=== PATIENT | male | born 1995 | race Caucasian/White ===

== ENCOUNTER 2018-12-07 00:19 | Emergency (ER) | payer SELFPAY ==
[~2018-12-07] VITALS: Ht 170.2 cm; Wt 79.4 kg
[2018-12-07] MEDS ORDERED: MIDAZOLAM 5 MG/5 ML (VERSED) VIAL IJ ONE (00:22)
[2018-12-07] MEDS ORDERED: SUCCINYLCHOLINE INJ 100 MG/5 ML SYR INJ ONE (00:22)
[2018-12-07] MEDS ORDERED: ROCURONIUM 10 MG/ML 5 ML SYRINGE IV ONE (00:22)
[2018-12-07] MEDS ORDERED: ETOMIDATE IV SOLN 20 MG/10 ML VIAL IV ONE (00:22)
--- NOTE | 2018-12-07 00:30 | NUR ---
PT PRESENTS TO ED AFTER AN INTENTIONAL OVERDOSE. PT ADMITS TO TAKING 52 TABLETS OF BENADRYL, 275 MG OF TRAMADOL, AND 10 PILLS OF PROZAC OF UNKNOWN DOSAGE. PT IS LETHARGIC, PALE, AND DIAPHORETIC.
[2018-12-07] MEDS ORDERED: NS IV 1000 ML 1,000 ML IV STA ×2 (00:41→01:08)
[2018-12-07 00:51] LABS: HEMATOCRIT 44 % (40-54); HEMOGLOBIN 15.3 G/DL (13.3-17.7); MEAN CORPUSCULAR HEMOGLOBIN 29 PG (25-34); MEAN CORPUSCULAR HGB CONC 35 G/DL (32-36); MEAN CORPUSCULAR VOLUME 85 FL (80-99); MEAN PLATELET VOLUME 9.1 FL (7.4-10.4); NEUTROPHILS % (AUTO) 69 % (42-75); PLATELET COUNT 267 10^3/uL (130-400); RED CELL DISTRIBUTION WIDTH 12.5 % (10.0-14.5); WHITE BLOOD COUNT 9.7 10^3/uL (4.3-11.0)
[2018-12-07] MEDS ORDERED: ONDANSETRON 4 MG/2 ML (SDV) Z0FRAN IVP STA (00:51)
[2018-12-07 00:52] LABS: BASOPHILS % (AUTO) 0 % (0-10); EOSINOPHILS # (AUTO) 0.1 10^3/uL (0.0-0.3); EOSINOPHILS % (AUTO) 1 % (0-10); LYMPHOCYTES % (AUTO) 21 % (12-44); MONOCYTES # (AUTO) 0.8 X 10^3 (0.0-1.0); MONOCYTES % (AUTO) 8 % (0-12); NEUTROPHILS # (AUTO) 6.8 X 10^3 (1.8-7.8)
[2018-12-07 01:01] LABS: ACETAMINOPHEN < 10 UG/ML (10-30); ALANINE AMINOTRANSFERASE 19 U/L (0-55); ALBUMIN 4.8 GM/DL (3.2-4.5); ALKALINE PHOSPHATASE 55 U/L (40-136); BILIRUBIN,TOTAL 0.3 MG/DL (0.1-1.0); BUN/CREATININE RATIO 11; CALCIUM 9.6 MG/DL (8.5-10.1); CARBON DIOXIDE 24 MMOL/L (21-32); CHLORIDE 99 MMOL/L (98-107); GFR ESTIMATED > 60; GLUCOSE 108 MG/DL (70-105); POTASSIUM 3.6 MMOL/L (3.6-5.0); SALICYLATE < 5.0 MG/DL (5.0-20.0); SODIUM 139 MMOL/L (135-145); TOTAL PROTEIN 7.5 GM/DL (6.4-8.2)
[2018-12-07] MEDS ORDERED: SODIUM BICARB 8.4% 50 MEQ/50 ML (ABBOTT) SYR ONE (01:07)
[2018-12-07] MEDS ORDERED: SODIUM BICARB 8.4% 50 MEQ/50 ML VIAL IV STA (01:08)
[2018-12-07] MEDS ORDERED: LORazepam INJ 2 MG/ML (ATIVAN) VIAL IVP STA (01:12)
[2018-12-07 01:13] LABS: COLOR,URINE YELLOW
[2018-12-07 01:14] LABS: BILIRUBIN,URINE NEGATIVE (NEGATIVE); CLARITY,URINE CLEAR; GLUCOSE, URINE (UA) NEGATIVE (NEGATIVE); KETONES,URINE NEGATIVE (NEGATIVE); LEUKOCYTE ESTERASE ,URINE NEGATIVE (NEGATIVE); NITRITE,URINE NEGATIVE (NEGATIVE); PROTEIN,URINE NEGATIVE (NEGATIVE); UROBILINOGEN,URINE 0.2 MG/DL (NORMAL); WBC,URINE 0-2 /HPF
--- NOTE | 2018-12-07 01:17 | ED Psychosocial ---
General Chief Complaint: Overdose Stated Complaint: OVERDOSE Nursing Triage Note: PT STATES HE TOOK 52 BENADRYL, 275MG TRAMADOL, 10-12 PROZAC, AND A HALF A BOTTLE OF WINE. PT IS LETHARGIC, PALE, AND DIAPHORETIC ON ARRIVAL Source: patient History of Present Illness Date Seen by Provider: Dec 07, 2018 Time Seen by Provider: 00:23 Initial Comments 23-year-old male presenting from home after overdosing on 52 Benadryl, 275 mg of tramadol, unknown number of Prozac and a bottle of wine. He states that he was trying to kill himself because he was depressed about his father's recent . He then changed his mind and drove himself here to the emergency department. He lives by himself. He was diaphoretic on arrival to the emergency department. He was also very tachycardic. He now states that he does not want to and that is why he came to the hospital to get help. He denies any past medical problems other than depression and problems with his shoulder. He reports that he took the medicines around 11 or 11:30 PM. Allergies and Home Medications Allergies Coded Allergies: Sulfa (Sulfonamide Antibiotics) (Verified Allergy, Unknown, 12/07/18) Patient Home Medication List Home Medication List Reviewed: Yes Review of Systems Constitutional: No chills; diaphoresis; No dizziness, No fever EENTM: No blurred vision, No throat pain, No throat swelling Respiratory: No cough, No dyspnea on exertion, No short of breath Cardiovascular: No chest pain; palpitations Gastrointestinal: No abdominal pain; nausea; No vomiting Genitourinary: no symptoms reported Musculoskeletal: no symptoms reported Skin: no symptoms reported Psychiatric/Neurological: Depressed, Emotional Problems Past Dskhimt-Yjifgv-Fzvsus Hx Past Med/Social Hx: Reviewed Nursing Past Med/Soc Hx Patient Social History Alcohol Use: Occasionally Uses Alcohol Beverage of Choice: Wine Recreational Drug Use: No Smoking Status: Never a Smoker Recent Foreign Travel: No Contact w/Someone Who Travel: No Recent Infectious Disease Expo: No Physical Abuse: No Sexual Abuse: No Mistreated: No Fear: No Seasonal Allergies Seasonal Allergies: No Past Medical History Surgeries: No Respiratory: No Cardiac: No Neurological: No Genitourinary: No Gastrointestinal: No Musculoskeletal: No Endocrine: No HEENT: No Cancer: No Psychosocial: Yes Depression Integumentary: No Physical Exam Vital Signs - First Documented 12/07/18 00:30 Temp 100.0 Pulse 115 Resp 22 B/P (MAP) 155/97 (116) Pulse Ox 99 O2 Delivery Room Air Capillary Refill : Less Than 3 Seconds Height, Weight, BMI Height: 5'7.00" Weight: 175lbs. oz. 79.616601fs; BMI Method:Estimated General Appearance: WD/WN HEENT: PERRL/EOMI, other (dry mucous membranes) Neck: non-tender, full range of motion, supple, normal inspection Respiratory: chest non-tender, lungs clear, normal breath sounds, no respiratory distress, no accessory muscle use Cardiovascular: normal peripheral pulses, tachycardia Gastrointestinal: normal bowel sounds, soft, no pulsatile mass Extremities: normal range of motion, non-tender, normal inspection, no calf tenderness, normal capillary refill Neurologic/Psychiatric: oriented x 3, depressed affect, other (somnolent but awakens to voice and answering questions) Appearance/Memory: disheveled Behavior/Eye Contact: cooperative Thoughts/Hallucinations: normal thought pattern Skin: diaphoresis, pallor Lymphatic: no adenopathy Procedures/Interventions Reason for Intubation: Secure airway to prevent aspiration and maintain airway and ventilations Date of ETT Placement: Dec 07, 2018 Time of ETT Placement: 02:00 Intubation Method: orotracheal Tube Size: 7.5 Medications: Etomidate, Succinylcholine, Versed Positive End Tide CO2: Yes Breath Sounds after Intubation: bilateral-equal Intubation Complications: no complications Post Intubation Xray: Yes ET tube in place above the arthur and with bilateral lung expansion. Progress/Results/Core Measures Results/Orders Lab Results Laboratory Tests Test 12/07/18 00:30 12/07/18 00:55 Range/Units White Blood Count 9.7 4.3-11.0 10^3/uL Red Blood Count 5.20 4.35-5.85 10^6/uL Hemoglobin 15.3 13.3-17.7 G/DL Hematocrit 44 40-54 % Mean Corpuscular Volume 85 80-99 FL Mean Corpuscular Hemoglobin 29 25-34 PG Mean Corpuscular Hemoglobin Concent 35 32-36 G/DL Red Cell Distribution Width 12.5 10.0-14.5 % Platelet Count 267 130-400 10^3/uL Mean Platelet Volume 9.1 7.4-10.4 FL Neutrophils (%) (Auto) 69 42-75 % Lymphocytes (%) (Auto) 21 12-44 % Monocytes (%) (Auto) 8 0-12 % Eosinophils (%) (Auto) 1 0-10 % Basophils (%) (Auto) 0 0-10 % Neutrophils # (Auto) 6.8 1.8-7.8 X 10^3 Lymphocytes # (Auto) 2.0 1.0-4.0 X 10^3 Monocytes # (Auto) 0.8 0.0-1.0 X 10^3 Eosinophils # (Auto) 0.1 0.0-0.3 10^3/uL Basophils # (Auto) 0.0 0.0-0.1 10^3/uL Sodium Level 139 135-145 MMOL/L Potassium Level 3.6 3.6-5.0 MMOL/L Chloride Level 99 98-107 MMOL/L Carbon Dioxide Level 24 21-32 MMOL/L Anion Gap 16 H 5-14 MMOL/L Blood Urea Nitrogen 12 7-18 MG/DL Creatinine 1.10 0.60-1.30 MG/DL Estimat Glomerular Filtration Rate > 60 BUN/Creatinine Ratio 11 Glucose Level 108 H 70-105 MG/DL Calcium Level 9.6 8.5-10.1 MG/DL Corrected Calcium 8.5-10.1 MG/DL Total Bilirubin 0.3 0.1-1.0 MG/DL Aspartate Amino Transf (AST/SGOT) 16 5-34 U/L Alanine Aminotransferase (ALT/SGPT) 19 0-55 U/L Alkaline Phosphatase 55 40-136 U/L Total Protein 7.5 6.4-8.2 GM/DL Albumin 4.8 H 3.2-4.5 GM/DL Lipase 22 8-78 U/L Salicylates Level < 5.0 L 5.0-20.0 MG/DL Acetaminophen Level < 10 L 10-30 UG/ML Serum Alcohol 17 H <10 MG/DL Urine Color YELLOW Urine Clarity CLEAR Urine pH 7.0 5-9 Urine Specific [place] <1.005 1.016-1.022 Urine Protein NEGATIVE NEGATIVE Urine Glucose (UA) NEGATIVE NEGATIVE Urine Ketones NEGATIVE NEGATIVE Urine Nitrite NEGATIVE NEGATIVE Urine Bilirubin NEGATIVE NEGATIVE Urine Urobilinogen 0.2 NORMAL MG/DL Urine Leukocyte Esterase NEGATIVE NEGATIVE Urine RBC (Auto) TRACE H NEGATIVE Urine RBC 2-5 H /HPF Urine WBC 0-2 /HPF Urine Crystals NONE /LPF Urine Bacteria NONE /HPF Urine Casts NONE /LPF Urine Mucus NEGATIVE /LPF Urine Culture Indicated NO Urine Opiates Screen NEGATIVE NEGATIVE Urine Oxycodone Screen NEGATIVE NEGATIVE Urine Methadone Screen NEGATIVE NEGATIVE Urine Propoxyphene Screen NEGATIVE NEGATIVE Urine Barbiturates Screen NEGATIVE NEGATIVE Ur Tricyclic Antidepressants Screen NEGATIVE NEGATIVE Urine Phencyclidine Screen NEGATIVE NEGATIVE Urine Amphetamines Screen NEGATIVE NEGATIVE Urine Methamphetamines Screen NEGATIVE NEGATIVE Urine Benzodiazepines Screen NEGATIVE NEGATIVE Urine Cocaine Screen NEGATIVE NEGATIVE Urine Cannabinoids Screen POSITIVE H NEGATIVE My Orders Orders - ISABEL GORDON MD Ua Culture If Indicated (12/07/18 00:38) Cbc With Automated Diff (12/07/18 00:38) Comprehensive Metabolic Panel (12/07/18 00:38) Alcohol (12/07/18 00:38) Drug Screen Stat (Urine) (12/07/18 00:38) Acetaminophen (12/07/18 00:38) Salicylate (12/07/18 00:38) Ekg Tracing (12/07/18 00:38) Ed Iv/Invasive Line Start (12/07/18 00:38) Monitor-Rhythm Ecg Trace Only (12/07/18 00:38) Bh Status Checks/Observation Q15M (12/07/18 00:38) Ns Iv 1000 Ml (Sodium Chloride 0.9%) (12/07/18 00:41) Ondansetron Injection (Zofran Injectio (12/07/18 00:51) Sodium Bicarbonate 8.4% Vial (Sodium Bic (12/07/18 01:08) Ns Iv 1000 Ml (Sodium Chloride 0.9%) (12/07/18 01:08) Lipase (12/07/18 01:11) Lorazepam Injection (Ativan Injection) (12/07/18 01:12) Sodium Bicarbonate 8.4% Syr (Sodium Bica (12/07/18 01:07) Lorazepam Injection (Ativan Injection) (12/07/18 01:45) Dasilva Cath (12/07/18 02:08) Ng Tube Insert & Assessment (12/07/18 02:08) Chest 1 View Ap/Pa Only (12/07/18 02:08) Medications Given in ED Current Medications Medications Dose Ordered Sig/Fletcher Route Start Time Stop Time Status Last Admin Dose Admin Lorazepam 1 mg ONCE ONCE IVP 12/07/18 01:45 12/07/18 01:46 DC 12/07/18 01:42 1 MG Vital Signs/I&O 12/07/18 12/07/18 00:30 02:10 Temp 100.0 Pulse 115 100 Resp 22 18 B/P (MAP) 155/97 (116) 197/147 (164) Pulse Ox 99 99 O2 Delivery Room Air Ambu Bag Blood Pressure Mean: 116 Progress Progress Note #1: Progress Note Obtain IV access and give IV fluids for hydration. Contact poison control about the medicines that he had overdosed on. Obtain electrocardiogram for his tachycardia and to get a baseline of his rhythm. I advised the patient that with the medicines that he was stating he overdosed on it will likely be necessary to intubate him at some point. He stated that he understood and was okay with that. I also advised him he would need to go to an ICU bed and at this point I did not have one at [facility] so he would likely need to go to a larger hospital. When asked if he had a preference for hospitals for transfer he stated he did not have a preference. Progress Note #2: Time: 01:04 Progress Note Based on discussion with the poison control and review of his electrocardiogram the patient does require sodium bicarbonate. This was ordered in addition to other IV fluids. He was also going to need Ativan or benzodiazepines if he has any agitation. We will monitor his lab work and continue to anticipate need for an ICU bed. Progress Note #3: Time: 01:12 Progress Note Patient was becoming more agitated so dose of Ativan 1 mg IV was ordered. He was continuing to receive IV fluids as well as sodium bicarbonate was ordered. Progress Note #4: Time: 01:38 Progress Note Patient was becoming more confused and agitated at times. A repeat dose of Ativan was ordered. His labs were back and were not showing any acute significant abnormality. He was stable enough for the moment while the nurses were preparing things to intubate the patient I went to contact [facility] and did have an accepting physician of Dr. Martinez at 0131 for the ICU. After this I went back to intubate the patient while we had a helicopter ambulance en route to take the patient. Progress Note #5: Time: 02:00 Progress Note Patient was given Versed, etomidate, succinylcholine to the assist with intubation. He was intubated on first attempt without any complication. He was noted to have some gagging after he had been intubated for a while so a dose of rocuronium was given to help with paralytics. Shortly after this the helicopter arrived for transportation to [facility]. The patient did have a Dasilva catheter placed to help drain his bladder. He was continuing to receive IV fluids for hydration. He did have an order for an NG tube but the nurses were unsuccessful with trying to place one through his nares. He remained in stable condition as the flight crew came to take him to [facility] Initial ECG Impression Date: Dec 07, 2018 Initial ECG Impression Time: 00:29 Initial ECG Rate: 105 Initial ECG Rhythm: S.Tach Initial ECG Comparisson: No Previous ECG Available Comment Sinus tachycardia with a heart rate of 105 bpm. MI interval 161 ms. QRS interval 401. QT interval 333 ms and a QT corrected interval 441 ms. He has no acute ST elevation. There is no prior tracing available for comparison. Critical Care Note Critical Care Total Time (minutes) 90 minutes Progress 90 minutes of critical care time was spent with the patient. This time was excluding separately billable procedures. Time was spent in obtaining history from the patient and medical records, ordering tests and reviewing results, ordering interventions and reviewing response, interpreting electrocardiogram, managing ventilations, discussion with consultants, documentation of the chart Departure Impression Primary Impression: Drug overdose Qualified Codes: T50.902A - Poisoning by unspecified drugs, medicaments and biological substances, intentional self-harm, initial encounter Additional Impressions: Depression with suicidal ideation Diphenhydramine overdose Qualified Codes: T45.0X2A - Poisoning by antiallergic and antiemetic drugs, intentional self-harm, initial encounter Overdose of drug Qualified Codes: T50.902A - Poisoning by unspecified drugs, medicaments and biological substances, intentional self-harm, initial encounter Disposition: 02 XFER [facility]-TRM HOSP Condition: Critical Transfer Time Spoke to Accepting Phy: 01:31 Transfer Progress Notes I spoke with Dr. Martinez at 0131 and he accepted the patient for transfer to [facility] ICU. 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 Transfer Facility: [facility] Method of Transfer: Air Departure-Patient Inst. Referrals: NO,LOCAL PHYSICIAN (PCP) Primary Care Physician Patient Instructions: ALCOHOL AND SUBSTANCE ABUSE ISABEL GORDON MD Dec 07, 2018 01:17
[2018-12-07 01:20] LABS: AMPHETAMINE SCREEN, URINE NEGATIVE (NEGATIVE); BARBITURATE SCREEN URINE NEGATIVE (NEGATIVE); BENZODIAZEPINES SCREEN URINE NEGATIVE (NEGATIVE); CANNABINOID SCREEN, URINE POSITIVE (NEGATIVE); COCAINE SCREEN URINE NEGATIVE (NEGATIVE); METHADONE STAT NEGATIVE (NEGATIVE); METHAMPHETAMINE SCREEN URINE S NEGATIVE (NEGATIVE); OPIATE SCREEN URINE NEGATIVE (NEGATIVE); OXYCODONE STAT NEGATIVE (NEGATIVE); PROPOXYPHENE STAT NEGATIVE (NEGATIVE); TRICYCLIC ANTIDEPRESSANTS SCRE NEGATIVE (NEGATIVE)
[2018-12-07] MEDS ORDERED: LORazepam INJ 2 MG/ML (ATIVAN) VIAL IVP ONE (01:45)
[2018-12-07] MEDS ORDERED: NS IV 1000 ML 1,000 ML IV SCH (01:55)
--- NOTE | 2018-12-07 02:00 | NUR ---
PT GIVEN VERSED 5MG, ETOMIDATE 20MG, SUCCINYLCHOLINE 100MG, AND ROCURONIUM 50MG FOR INTUBATION
[2018-12-07 02:10] VITALS: BP 197/147
--- NOTE | 2018-12-07 08:01 | Diagnostic Imaging Report ---
INDICATION: Overdose. ET tube placement. FINDINGS: Portable chest shows normal heart size and vascularity. The lungs are clear. There is no effusion or pneumothorax. ET tube is in good position. IMPRESSION: No acute abnormality is seen. Satisfactory ET tube placement. Dictated by: Dictated on workstation # [id number]
== END 2018-12-07 02:40 | disposition short-term general hospital (02) ==
LOC: ER FS 00:21
DX: T45.0X2A Poisoning by antiallergic and antiemetic drugs, intentional self-harm, initial encounter (principal); T40.4X2A Poisoning by other synthetic narcotics, intentional self-harm, initial encounter; T43.222A Poisoning by selective serotonin reuptake inhibitors, intentional self-harm, initial encounter; F32.9 Major depressive disorder, single episode, unspecified; R45.851 Suicidal ideations; Z88.2 Allergy status to sulfonamides
CPT/HCPCS: 31500; 36415; 51702; 71045; 80053; 80306; 80320; 80329; 81000; 83690; 85025; 93005; 93041